=== PATIENT | male | born 1970 | race Caucasian/White ===

== ENCOUNTER 2019-07-19 05:02 | Inpatient (IN) ==
[2019-07-12 13:22] LABS: Basophils # (Auto) 0 K/mcL (0.0-0.3); Basophils % (Auto) 0.5 % (0.0-2.0); Eosinophils # (Auto) 0.2 K/mcL (0.0-0.7); Eosinophils % (Auto) 1.6 % (0.0-7.0); Granulocytes % (Auto) 62.8 % (38.0-78.0); Hemoglobin 15.8 g/dL (13.5-16.5); Lymphocytes # (Auto) 2.6 K/mcL (1.5-4.8); Lymphocytes % (Auto) 26.2 % (15.5-49.0); Mean Cell Volume 94.8 fL (80.0-100.0); Mean Corpuscular HGB Conc 33.6 g/dL (31.0-36.0); Mean Platelet Volume 8.2 fL (7.4-10.4); Monocytes # (Auto) 0.9 K/mcL (0.1-0.9); Monocytes % (Auto) 8.9 % (1.0-12.0); Platelet Count 210 K/mcL (140-440); RBC 4.96 M/mcL (4.50-5.90); Red Cell Distribution Width 13.4 % (11.5-14.5); WBC 9.9 K/mcL (4.5-11.0)
[2019-07-12 13:27] LABS: Blood Urea Nitrogen 13 mg/dl (6-20); Calcium 9.5 mg/dl (8.6-10.4); Carbon Dioxide 27 mmol/L (22-30); Chloride 96 mmol/L (96-108); Glomerular Filtration Rate 80; Glucose 99 mg/dL (70-105)
[2019-07-12 13:34] LABS: Appearance,Urine CLEAR; Bilirubin,Urine NEG (NEG); Color,Urine STRAW; Culture Indicated,Urine NO; Glucose,Urine (UA) NEGATIVE (NEG); Ketones,Urine NEG (NEG); Leukocyte Esterase,Urine NEG /uL (NEG); Nitrate,Urine NEG (NEG); Protein,Urine NEG (NEG); Specific Gravity,Urine 1.008 (1.000-1.035); Urine Blood NEG mg/dL (<0.03); Urobilinogen,Urine NEG (NEG)
[2019-07-12 13:40] LABS: Estimated Average Glucose(eAG) 108 mg/dL; Hemoglobin A1C 5.4 % HGB (4.0-6.0)
[~2019-07-19 05:02] MED LIST: IPRATROPIUM/ALBUTEROL 3 ML AMPUL.NEB NEB PRN; SCOPOLAMINE 1 PATCH PATCH TOPICAL PRN
[2019-07-19] MEDS ORDERED: ceFAZolin 2 GM in DEXTROSE 5% IN WATER 50 ML IV SCH (06:00)
[2019-07-19] MEDS ORDERED: PREGABALIN 75 MG CAPSULE PO SCH (06:00)
[2019-07-19] MEDS ORDERED: 0.9 % SODIUM CHLORIDE 9 ML, KETOROLAC 30 MG, ROPIVACAINE HCL/PF 49.5 ML, EPINEPHrine 0.... IJ SCH (06:00)
[2019-07-19] MEDS ORDERED: oxyCODONE 10 MG TAB.ER.12H PO SCH (06:00)
[2019-07-19] MEDS ORDERED: CELECOXIB 200 MG CAPSULE PO SCH (06:00)
[2019-07-19] MEDS ORDERED: ePHEDrine 50 MG/ML AMPUL IV ONE (07:45)
[2019-07-19] MEDS ORDERED: PHENYLEPHRINE 10 MG/ML VIAL IV ONE (07:45)
[2019-07-19] MEDS ORDERED: PROPOFOL 200 MG/20 ML VIAL IV ONE (07:45)
[2019-07-19] MEDS ORDERED: TRANEXAMIC ACID 1,000 MG/10 ML VIAL IV ONE ×2 (07:45→09:14)
[2019-07-19] MEDS ORDERED: KETAMINE 100 MG/ML ML IV ONE (07:45)
[2019-07-19] MEDS ORDERED: ONDANSETRON 4 MG/2 ML VIAL IV ONE (07:45)
[2019-07-19] MEDS ORDERED: DEXAMETHASONE 10 MG/ML VIAL IV ONE (07:45)
[2019-07-19] MEDS ORDERED: ONDANSETRON 4 MG/2 ML VIAL IV PRN ×2 (09:14→09:22)
[2019-07-19] MEDS ORDERED: HYDROmorphone 2 MG/ML VIAL IV PRN (09:14)
[2019-07-19] MEDS ORDERED: MAGNESIUM HYDROXIDE 30 ML ORAL.SUSP PO PRN (09:14)
[2019-07-19] MEDS ORDERED: BISACODYL 10 MG SUPP.RECT PR PRN (09:14)
[2019-07-19] MEDS ORDERED: BENZOCAINE/MENTHOL 1 LOZENGE PO PRN ×2 (09:14→09:22)
[2019-07-19] MEDS ORDERED: FLEETS ADULT ENEMA PR PRN (09:14)
--- NOTE | 2019-07-19 09:14 | Brief Operative Note ---
Date of procedure: 07/19/19 Pre-op diagnosis: R hip severe DJD Post-op diagnosis: same Procedure: Right anterior total hip arthroplasty Grafts/Implants: Yes (Depuy Actis 8 high offset, +5 36 delta head, 56 cup, delta ceramic liner) Anesthesia: spinal, GLMA Findings: severe arthritis Complications: none Surgeon: Cal Rivera Skimmer: Mark Michael Estimated blood loss (cc): 200 Specimens Removed/Pathology: none sent Condition: stable Disposition: PACU
[2019-07-19] MEDS ORDERED: IPRATROPIUM/ALBUTEROL 3 ML AMPUL.NEB NEB PRN (09:22)
[2019-07-19] MEDS ORDERED: PROMETHAZINE 25 MG/ML VIAL IV PRN (09:22)
[2019-07-19] MEDS ORDERED: diphenhydrAMINE 50 MG/ML VIAL IV PRN (09:22)
[2019-07-19] MEDS ORDERED: LACTATED RINGERS 250 ML IV PRN (09:22)
[2019-07-19] MEDS ORDERED: NALOXONE HCL 0.4 MG/ML VIAL IV PRN (09:22)
[2019-07-19] MEDS ORDERED: MEPERIDINE 25 MG/ML SYRINGE IV PRN (09:22)
[2019-07-19] MEDS ORDERED: fentaNYL 100 MCG/2 ML VIAL IV PRN (09:22)
[2019-07-19] MEDS ORDERED: ACETAMINOPHEN 1,000 MG/100 ML BOTTLE IV ONE (09:22)
[2019-07-19] MEDS ORDERED: LACTATED RINGERS 1,000 ML IV SCH (09:30)
--- NOTE | 2019-07-19 10:14 | XRay Report ---
CLINICAL INFORMATION: Status post right hip replacement TECHNIQUE: AP and crosstable lateral right hip COMPARISON: None. FINDINGS: Previous bilateral total hip arthroplasty. This examination was obtained following right hip replacement. Femoral head and stem in anatomic positions. Acetabular component is anatomic. There is postsurgical soft tissue and intra-articular gas. IMPRESSION: Status post right total hip arthroplasty Interpreted and Authenticated by: Kelvin Crawford 07/19/19
--- NOTE | 2019-07-19 10:45 | Operative Note ---
DATE OF OPERATION: 07/19/2019 PREOPERATIVE DIAGNOSIS: Right hip severe osteoarthritis. POSTOPERATIVE DIAGNOSIS: Right hip severe osteoarthritis. PROCEDURE PERFORMED: Right anterior total hip arthroplasty placing a DePuy Actis size 8 high offset femoral stem, a +5, 36 mm delta ceramic head, a 56 no-hole [place] cup with a delta ceramic liner. SURGEON: Cal Rivera MD REEL TENDER: Luciano Michael PA-C. This provider's expertise and technical skill were required throughout the case. The PA assisted with preoperative coordination, intraoperative retraction, wound closure, dressing and splint application, as well as postoperative documentation and care coordination. ANESTHESIA: Spinal plus general. DRAINS: None. SPECIMENS: Femoral head which was discarded. BLOOD LOSS: 200 mL COMPLICATIONS: None. POSTOPERATIVE CONDITION: Stable. INDICATIONS FOR SURGERY: A 49-year-old male who has had longstanding progressive worsening right hip pain. Radiographs showed advanced osteoarthritis bone on bone. FINDINGS AT SURGERY: Severe arthritis. Post implantation showed relative equalization of leg length with components in good position. The patient had been seen preoperatively. Informed consent had been obtained after discussion of risks and benefits of surgery. Risks including, but not limited to, bleeding, possibly requiring transfusion; infection, possibly requiring implant removal and prolonged IV antibiotics; injury to nerves, blood vessels, and other surrounding structures; anesthetic risks; incomplete or no resolution of symptoms; leg length discrepancy; dislocation; fracture; DVT and pulmonary embolus risks; and the possibility of needing further revision surgery, particularly given his young age. He understood these risks and wished to proceed. Correct operative site was marked and then patient was given spinal anesthesia and taken to the operating room and LMA general given. The patient was then carefully positioned on the fracture table and then the right hip and groin were carefully prepped and draped in normal sterile fashion. a timeout was performed verifying patient name, operative site, and plan. Ioban drape was used to cover all skin surfaces. A scalpel was used to make incision through a standard anterior approach starting 2 cm distal and 3 cm lateral to the ASIS. Hemostasis was obtained with Bovie cautery and then careful blunt dissection taken down to the tensor fascia. We then carefully dissected circumferentially. IrriSept was irrigated and then a ring retractor placed. Tensor fascia was incised in line with muscle fibers and the lateral femoral cutaneous nerve was identified and carefully kept out of the incision. Careful blunt dissection was taken medial to the muscle belly and then blunt cobra retractors placed on the superior and inferior neck. Circumflex vessels were coagulated and cut and then vastus fascia split distally. Anterior capsulectomy was performed and then a corkscrew was placed in the femoral head. Of note, prior to this, with no traction on the leg we did take x-rays of the leg for joint point purposes. The corkscrew was placed in the femoral head and osteotome used under fluoro to identify our prep approximate neck cut trajectory and then oscillating tip saw was used to make our osteotomy and the femoral head was removed. Acetabulum was exposed. Labrum was excised circumferentially as well as soft tissue from the floor and bone wax had been placed on the cut neck surface. IrriSept was irrigated and then we began reaming under fluoroscopic guidance directly medializing to the tear drop initially and then increasing reamer size and angle. We thought we were starting to get some rim ream at 53. I trialed a 53 acetabular trial and this did not get adequate press-fit, so I went ahead and went to a 55 reamer. This got a much better rim ream so we opened a 56 no-hole [place] cup. We irrigated the acetabulum with IrriSept again. After waiting a minute we pulse lavaged with saline. The cup was then impacted with the [id number] using joint point. We ended up placing this in about 38 degrees of inclination and 30 degrees of anteversion. We then placed a center hole cover and a 36 delta ceramic liner was opened. We did remove a large anterior osteophyte with a curved osteotome. The ceramic liner was carefully aligned and verified to be flush circumferentially and then we impacted this with several blows of the [id number]. I then removed traction from the leg. It was externally rotated. We released capsule around the medial and posterior neck and then leg was extended and adducted. We released capsule out towards the greater trochanter and once we had adequate proximal femur exposure a box osteotome was used to gain canal entry. An awl was used to identify canal trajectory and rongeur and rasp were used to lateralize. We then sequentially broached with the [id number] up to a size 7, which he had on his other side. We calcar planed down onto this and then a high offset neck with a +5 head ball was placed as preoperative templating suggested. We had lengthened his other side about 11 to 12 mm. We went ahead and reduced the hip and then fluoroscopy was brought in. X-rays were taken. Joint points were checked. Our stem did appear slightly undersized. However, it was sitting approximately where his other hip stem was. We went ahead and redislocated. I was able to impact the stem down about 2 to 3 more mm with the [id number] so I did decide to go up to a size 8 stem with the broach. We broached this and were able to get this to seat right at our neck cut. We went ahead and removed the 8. We opened the 8 high offset stem. Femoral canal was irrigated with IrriSept, after a minute pulse lavaged with saline. We then impacted the size 8 stem and the collar did seat on the neck cut. We then opened a +5 head ball. The stem was carefully cleaned and dried and the head ball and impacted with the [id number]. We then reduced the hip. Final fluoro images were taken. We filled the joint with IrriSept. After a minute we pulse lavaged with saline. Pain cocktail was injected in the pericapsular tissues and then a #1 Vicryl running stitch was used to close tensor fascia, one running proximal, one running distal. Ring retractor was removed. IrriSept was irrigated and fat was tacked to fascia with Vicryl, 2-0 Monocryl used for subcutaneous and grover for skin. Xeroform and sterile dressing were applied. The patient was then awakened, extubated, and transferred to recovery in stable condition. BJB:[email or web address] Job ID: [id number] Doc ID: [id number] Cal Rivera MD
[2019-07-19] MEDS: KETOROLAC 30 MG/ML VIAL IV PRN ×2 (11:08→16:50)
[2019-07-19] MEDS: 0.9 % SODIUM CHLORIDE 1,000 ML IV SCH ×2 (11:09→18:53)
[2019-07-19] MEDS: 0.9 % SODIUM CHLORIDE 10 ML SYRINGE IV SCH ×2 (13:09→22:54)
[2019-07-19] MEDS: HYDROcodone/APAP 10/325MG TABLET PO PRN ×3 (14:05→23:02)
[2019-07-19] MEDS: ceFAZolin 1 GM VIAL IV SCH ×2 (15:05→23:03)
--- NOTE | 2019-07-19 15:32 | XRay Report ---
CLINICAL INFORMATION: Right hip replacement. Intraoperative fluoroscopy. TECHNIQUE: 0.6 minutes fluoroscopy utilized by Dr. Tipton. Intraoperative spot films obtained. Right total hip arthroplasty performed. IMPRESSION: Intraoperative fluoroscopy and spot films utilized during right total hip arthroplasty. Interpreted and Authenticated by: Kelvin Crawford 07/19/19
[2019-07-19] MEDS: POLYETHYLENE GLYCOL 3350 17 GM PACKET PO PRN (16:47)
[2019-07-19] MEDS ORDERED: ZOLPIDEM 5 MG TABLET PO PRN (17:01)
[2019-07-19] MEDS ORDERED: SENNOSIDES 1 TABLET PO SCH (21:00)
[2019-07-19] MEDS: DOCUSATE SODIUM 100 MG CAPSULE PO SCH (21:04)
[2019-07-19] MEDS: ASPIRIN 81 MG TAB.CHEW PO SCH (21:04)
[2019-07-20] MEDS: KETOROLAC 30 MG/ML VIAL IV PRN (01:03)
[2019-07-20] MEDS: 0.9 % SODIUM CHLORIDE 1,000 ML IV SCH (01:11)
[2019-07-20] MEDS: HYDROcodone/APAP 10/325MG TABLET PO PRN ×2 (05:31→09:40)
[2019-07-20] MEDS: 0.9 % SODIUM CHLORIDE 10 ML SYRINGE IV SCH (05:34)
--- NOTE | 2019-07-20 07:34 | Discharge Summary ---
Providers - Providers Patient information: Note initiated : 07/20/19 at 7:31 am Service Date, if different from initiated Date: [] Patient: Kelvin Nichols 49 y/o M admitted on 07/19/19 for Right Total Hip Arthroplasty . Chief Complaint: [] Discharge date: 07/20/19 Hospitalization Hospital Course: Pt was admitted for a EMERITA. Pt admitted on the day of admission. Pt transferred to the floor for IV pain meds, IV abx, and PT. Pt discharged on post-op day1. Will take ASA for DVT prophylaxis. f/u in 2 weeks. Discharge diagnosis: R hip OA Exam - Exam Clean and dry: Yes Weight bearing status: as tolerated Ortho Discharge - EMERITA - Patient Instructions Diet: Regular Diet Activity: activity as tolerated Total Hip Protocol: Follow activity instructions as provided by Physical Therapy. Dressing Care: May shower in 2 days Additional Instructions: Discharge Instructions: Do the exercises at home that physical therapy gave you. Weight bearing as tolerated. Take your prescription, photo ID, insurance cards, and current medication list with you to your first physical therapy appointment. Wear comfortable clothing for your physical therapy. Take your prescription to picker box operator any medication or equipment (such as walker, crutches, toilet riser or C.P.M.) If you have the Aquacel Ag dressing, leave in place for 7 days then remove. If dressing becomes soiled (turns black), remove and use gauze 4x4 dressing and antimicrobial silver ointment ([id number]) and change daily. You may shower with dressing on, pat dry after shower. If you have Dermabond (a dressing with a mesh-like appearance), DO NOT remove mesh. Cover site daily with a new gauze dressing. You may start showering on post op day #2. The Dermabond dressing can get wet. Do not scrub dressing. Pat dry, then place new dry gauze (rewrap with ESTELA dressing if you had a total knee). To avoid constipation while taking any narcotic pain medication, take an over the counter stool softener/laxative. Use your Cryocuff or ice packs as directed, on for 20 minutes at a time, throughout the day. Ice and elevation will help with pain and swelling. If you have any questions or concerns call your orthopedic surgeon before going to the emergency room. [facility] has a process control programmer physician 24 hours per day/7 days per week and can be reached at [phone]. Call for fevers above 100.5 or pain not controlled by medication. Your prescriptions are with your discharge information. Some medications were electronically transmitted to your pharmacy of choice. Take Aspirin as prescribed to prevent blood clots (see medication list). - Follow Up Plan Follow Up Appointments: Mark Michael PA-C [Physician Agronomy Research Manager] - 08/03/19 8:40 am Disposition: Home, Self-Care Prognosis: Good Rehab Potential: Good Overall status at discharge: patient is progressing back to baseline - Orders For Discharge Prescriptions: Aspirin 81 mg PO BID #60 tab.chew Transmission Status: Pending to [facility] Hydrocodone/APAP 7.5/325Mg [Kirkwood 7.5-325Mg] 1 - 2 tab PO Q6HP PRN #50 tab PRN Reason: Pain Prescription Printed Pending Studies Resuscitation Status Full Code Diet Regular Diet Start WedJul 19 916 Hydrocodone Bitart/Acetaminophen ([place] 10/325mg) 0 tab PO Q4HP PRN PRN Reason: PAIN LEVEL 3-6 Last Admin: 07/20/19 05:31 Dose: 1 tab Documented by: Admin: 07/19/19 23:02 Dose: 1 tab Documented by: Admin: 07/19/19 21:03 Dose: 1 tab Documented by: Admin: 07/19/19 14:05 Dose: 1 tab Documented by: CALEB Aspirin (Aspirin) 81 mg PO BID [facility] Last Admin: 07/19/19 21:04 Dose: 81 mg Documented by: KAYCEE Docusate Sodium (Colace) 100 mg PO BID [facility] Last Admin: 07/19/19 21:04 Dose: 100 mg Documented by: KAYCEE Sodium Chloride (Sodium Chloride 0.9%) 1,000 mls @ 125 mls/hr IV .Q8H [facility] Last Admin: 07/20/19 01:11 Dose: Not Given Documented by: Infusion: 07/20/19 01:04 Dose: 0 mls/hr Documented by: Admin: 07/19/19 18:53 Dose: 125 mls/hr Documented by: Infusion: 07/19/19 18:53 Dose: 125 mls/hr Documented by: Admin: 07/19/19 11:09 Dose: 125 mls/hr Documented by: [facility] Ketorolac Tromethamine (Toradol) 30 mg IV Q6HP PRN PRN Reason: Pain Stop: 07/21/19 09:17 Last Admin: 07/20/19 01:03 Dose: 30 mg Documented by: Admin: 07/19/19 16:50 Dose: 30 mg Documented by: [facility] Admin: 07/19/19 11:08 Dose: 30 mg Documented by: [email or web address] Polyethylene Glycol (Miralax) 17 gm PO DAILYP PRN PRN Reason: Constipation Last Admin: 07/19/19 16:47 Dose: 17 gm Documented by: [facility] Senna (Senokot) 2 tab PO HS [facility] Last Admin: 07/19/19 21:04 Dose: 2 tab Documented by: KAYCEE Sodium Chloride (Saline Flush) 10 ml IV Q8 [facility] Last Admin: 07/20/19 05:34 Dose: 10 ml Documented by: Admin: 07/19/19 22:54 Dose: Not Given Documented by: Admin: 07/19/19 13:09 Dose: Not Given Documented by: [facility] Zolpidem Tartrate (Ambien) 5 mg PO HSP PRN PRN Reason: Insomnia Last Admin: 07/19/19 21:38 Dose: 5 mg Documented by: KAYCEE Shift Summary 07/20/19 04:37 Shift Summary by Kinsey Boogie Pt is A&Ox4. VSS on RA. Voiding well. Up w/SBA, FWW, & GB. Ambulated in hallway x1 this shift & to/from BR a few times (amb in handy x3 or so during day shift). Pt received Kirkwood x2 & Toradol x1 for hip pain. Dressing to right hip CDI. Pt got PRN Ambien at HS for sleep. Pt states he still has some slight numbness to right lateral thigh, but numbness nearly gone. Tolerating PO intake. IV to LFA, SL. Will update with verbal report. Initialized on 07/20/19 04:37 - END OF NOTE
[2019-07-20] MEDS: POLYETHYLENE GLYCOL 3350 17 GM PACKET PO PRN (08:05)
[2019-07-20] MEDS: DOCUSATE SODIUM 100 MG CAPSULE PO SCH (08:05)
[2019-07-20] MEDS: ASPIRIN 81 MG TAB.CHEW PO SCH (08:05)
[2019-07-20] MEDS ORDERED: LISINOPRIL 20 MG TABLET PO SCH (09:00)
[2019-07-20] MEDS ORDERED: LISINOPRIL/HCTZ 20/12.5MG TABLET PO SCH (09:00)
[2019-07-20] MEDS ORDERED: HYDROCHLOROTHIAZIDE 12.5 MG CAPSULE PO SCH (09:00)
[2019-07-20] MEDS ORDERED: MULTIVIT,THER IRON,CA,FA & MIN 1 TABLET PO SCH (09:00)
[2019-07-20] MEDS ORDERED: amLODIPine 10 MG TABLET PO SCH (09:00)
== END 2019-07-20 09:59 | disposition home or self-care (01) | DRG 470 ==
LOC: MEDSUR 05:02
PROVIDERS: ADMIT Orthopaedic Surgery; ATTEND Orthopaedic Surgery